=== PATIENT | male | born 1950 | race Caucasian/White ===

== ENCOUNTER 2018-02-18 14:58 | Outpatient (CLI) | payer MEDICARE ==
[2018-02-18 16:47] LABS: Hemoglobin 13.6 g/dL (14.0-18.0); Mean Corpuscular HGB CONC 34.4 g/dL (32.0-36.0); Mean Corpuscular Hemoglobin 30.2 pg (27.0-31.0); Mean Corpuscular Volume 87.6 fL (78.0-98.0); Mean Platelet Volume 7.3 fL (7.4-10.4); Platelet Count 186 thou/uL (130-400); RBC Distribution Width 11.3 % (11.5-14.5)
[2018-02-18 16:56] LABS: INR-International Normal Ratio 0.9; PTT 28.9 SEC (22.9-36.1); Prothrombin Time 12.6 SEC (12.0-14.7)
[2018-02-18 17:06] LABS: Anion Gap 12 mmol/L (10-20); BUN (Urea Nitrogen) 13 mg/dL (8.4-25.7); Calc. Creatinine Clearance 0 mL/min (70-130); Calcium 9.2 mg/dL (7.8-10.44); Carbon Dioxide 23 mmol/L (23-31); Chloride 106 mmol/L (98-107); Estimated GFR-MDRD 74; Glucose 95 mg/dL (80-115); Potassium 3.9 mmol/L (3.5-5.1); Sodium 137 mmol/L (136-145)
== END 2018-02-18 14:59 | disposition home or self-care (01) ==
LOC: LABBT 14:58
PROVIDERS: ATTEND Urology
DX: Z01.812 Encounter for preprocedural laboratory examination (principal); N32.89 Other specified disorders of bladder
CPT/HCPCS: 80048; 85027; 85610; 85730

== ENCOUNTER 2018-02-23 06:46 | Day surgery (SDC) | payer MEDICARE ==
[2018-02-18 15:19] VITALS: BMI 29.8
[2018-02-23] MEDS ORDERED: CEFAZOLIN/Water 2 GM/20 ML SYRINGE ONE (06:57)
[2018-02-23] MEDS ORDERED: Iothalamate Meglumine 60% 50 ML VIAL FS ONE (08:22)
[2018-02-23] MEDS ORDERED: Fentanyl 100 MCG/2 ML VIAL ONE (09:23)
[2018-02-23] MEDS ORDERED: B & O 30 MG SUPP ONE (11:53)
--- NOTE | 2018-02-23 13:27 | OP ---
DATE OF PROCEDURE: 02/23/2018 PREOPERATIVE DIAGNOSES: Bladder lesions and lower urinary tract symptoms. POSTOPERATIVE DIAGNOSES: Bladder lesions and lower urinary tract symptoms. PROCEDURE PERFORMED: Cysto bladder biopsy, prostatic urethral biopsy. SURGEON: Dr. Abdullahi Nuñez. ANESTHETIC: General. ESTIMATED BLOOD LOSS: 75 mL. DRAINS PLACED: 18 [place] Mercado catheter with 20 mL in the balloon. FINDINGS: There was no stricture disease. There is moderately large prostate gland. He had some frondular/papillary changes of the prostatic urethra. These were biopsied and some inflammatory changes on the trigone not involving ureteral orifices. This was biopsied. He had some red oozing area in the left wall and two areas on the anterior wall. These were biopsied and fulgurated. These were all sent to pathology. OPERATIVE TECHNIQUE: Obtained written and verbal consent from the patient after receiving IV antibiotics, he was taken to the operating suite. He was placed in the supine position on the treatment table. He was given a general anesthetic, oral intubation. He was placed in the dorsal lithotomy position and sterilely prepped and draped. PlexiPulses had been placed on his lower extremities as mentioned. Cystoscopy was performed with a 22-Eth[place] sheath. This was well lubricated, passed under direct vision through the male urethra into the urinary bladder with aid of a video camera and monitor and a 30-degree lens. Bladder was filled and emptied a number of times being examined both 30 and a 70 degree lens with the findings above. Note, it is the fact that every time the patient's bladder became full, he began to fight against this. We appeared to have good hemostasis. The instruments were removed. Mercado catheter was placed. He was taken out of dorsal lithotomy position, awakened, extubated, and taken by stretcher to the recovery room. CARLEY
== END 2018-02-23 12:20 | disposition home or self-care (01) ==
LOC: SDC 06:46
PROVIDERS: ATTEND Urology
PROC: 0TBB8ZX Excision of Bladder, Via Natural or Artificial Opening Endoscopic, Diagnostic (ICD-10-PCS; principal; 2018-02-23)
DX: N30.00 Acute cystitis without hematuria (principal); N30.20 Other chronic cystitis without hematuria; N30.80 Other cystitis without hematuria; F41.9 Anxiety disorder, unspecified; N40.1 Benign prostatic hyperplasia with lower urinary tract symptoms; Z79.899 Other long term (current) drug therapy
CPT/HCPCS: 88305; J3010; Q9961

== ENCOUNTER 2021-03-27 10:33 | Outpatient (CLI) | payer MEDICARE | END 2021-03-27 10:34 | disposition home or self-care (01) | LOC: BICULT 10:33 | PROVIDERS: ATTEND Registered Nurse | DX: Z13.6 Encounter for screening for cardiovascular disorders (principal) | CPT/HCPCS: 76775 ==

== ENCOUNTER 2021-08-26 11:00 | Inpatient (IN) | payer MEDICARE ==
[2021-08-26 12:42] LABS: Hemoglobin 13.8 g/dL (13.5-17.5); Mean Corpuscular HGB CONC 33.7 g/dL (32.0-36.0); Mean Corpuscular Hemoglobin 29.5 pg (27.0-33.0); Mean Corpuscular Volume 87.6 fl (81.2-95.1); Mean Platelet Volume 9.7 fl (7.4-10.4); Platelet Count 175 10x3/uL (150-450); RBC Distribution Width 14.3 % (11.5-14.5); Red Blood Cell (RBC) Count 4.68 10x6/uL (4.32-5.72); White Blood Cell (WBC) Count 3.6 10x3/uL (3.5-10.5)
[2021-08-26 12:52] LABS: Anion Gap 15 mmol/L (10-20); BUN (Urea Nitrogen) 16 mg/dL (8.4-25.7); Calc. Creatinine Clearance 0 mL/min (70-130); Calcium 9.9 mg/dL (7.8-10.44); Carbon Dioxide 26 mmol/L (23-31); Chloride 105 mmol/L (98-107); Glucose 86 mg/dL (80-115); Potassium 4.6 mmol/L (3.5-5.1); Sodium 141 mmol/L (136-145)
[2021-08-26 22:58] LABS: SARS-CoV-2 PCR by NAA Not Detected (NotDetected)
[2021-08-27 16:20] VITALS: BMI 25.4
[2021-08-29] MEDS ORDERED: EPINEPHrine 1 MG/ML AMP ONE (06:22)
[2021-08-29] MEDS ORDERED: Albumin 5% 500 ML ONE (06:22)
[2021-08-29] MEDS ORDERED: Bupivacaine PF 0.5% 30 ML VIAL ONE (06:22)
[2021-08-29] MEDS ORDERED: Dexamethasone 4 mg/ml Vial ONE (06:22)
[2021-08-29] MEDS ORDERED: Heparin 10,000 UNITS/1 ML VIAL 30,000 UNITS in Sodium Chloride 0.9% 1,000 ML FS SCH (07:00)
[2021-08-29] MEDS ORDERED: Midazolam HCl 2 mg/2 ml Vial ONE ×2 (07:06→07:14)
[2021-08-29] MEDS ORDERED: Fentanyl 250 MCG/5 ML VIAL ONE (07:06)
[2021-08-29] MEDS ORDERED: ceFAZolin (BATCH) 2 GM/100 ML BAG ONE (07:19)
[2021-08-29] MEDS ORDERED: Potassium Chloride 60 MEQ/30 ML VIAL ONE (07:35)
[2021-08-29] MEDS ORDERED: Rocuronium Bromide 10 MG/ML (10ML VIAL) ONE (07:35)
[2021-08-29] MEDS ORDERED: Sodium Bicarb 50 MEQ/50 ML Abboject 8.4% SYRINGE ONE (07:35)
[2021-08-29] MEDS ORDERED: Heparin 30,000 units/30 ml VIAL ONE (07:35)
[2021-08-29] MEDS ORDERED: Heparin 5,000 UNITS/ML VIAL ONE (07:35)
[2021-08-29] MEDS ORDERED: PROPOFOL 200 MG/20 ML VIAL ONE (07:35)
[2021-08-29] MEDS ORDERED: Calcium Chloride 1 GM/10 ML Abboject SYRINGE ONE (07:35)
[2021-08-29] MEDS ORDERED: Aminocaproic Acid 5 GM/20 ML VIAL ONE (07:35)
[2021-08-29] MEDS ORDERED: Glycopyrrolate 0.2 MG/ML 5 ML SYRINGE ONE (07:35)
[2021-08-29] MEDS ORDERED: Mannitol 12.5 GM/50 ML ONE (07:35)
[2021-08-29] MEDS ORDERED: Cardioplegic Soln 1,000 ML BAG ONE (07:35)
[2021-08-29] MEDS ORDERED: Magnesium Sulfate 1 GM/2 ML VIAL ONE (07:35)
[2021-08-29] MEDS ORDERED: Papaverine 60 MG/2 ML VIAL ONE (07:35)
[2021-08-29] MEDS ORDERED: Ondansetron PF 4 MG/2 ML Vial ONE (07:35)
[2021-08-29] MEDS ORDERED: Lidocaine 2% PF 100 mg/5 ml Syringe ONE (07:35)
[2021-08-29] MEDS ORDERED: Thrombin 5000 UNITS/5 ML VIAL ONE (07:35)
[2021-08-29] MEDS ORDERED: Potassium Chloride 20 MEQ/100 ML PREMIX BAG IVPB PRN (10:28)
[2021-08-29] MEDS ORDERED: Morphine 2 MG/ML VIAL SLOW IVP PRN (10:28)
[2021-08-29] MEDS ORDERED: Nitroglycerin 50 MG/250 ML BOT 250 ML IVPB PRN (10:28)
[2021-08-29] MEDS ORDERED: Mag-Al 1200 mg/1200 mg/30 ML UDCUP PO PRN (10:28)
[2021-08-29] MEDS ORDERED: Hetastarch 6% 500 ML 500 ML IVPB PRN (10:28)
[2021-08-29] MEDS ORDERED: Ondansetron PF 4 MG/2 ML Vial IVP PRN (10:28)
[2021-08-29] MEDS ORDERED: Bisacodyl 5 MG TAB PO PRN (10:28)
[2021-08-29] MEDS ORDERED: Magnesium 2 GM/50 ML(in water) 2 GM in Premix Bag 1 BAG IVPB SCH (10:28)
[2021-08-29] MEDS ORDERED: Acetaminophen 325 MG TAB PO PRN (10:28)
[2021-08-29] MEDS ORDERED: Guaifenesin DM 100-10/5 ML UDCUP PO PRN (10:28)
[2021-08-29] MEDS ORDERED: Phenylephrine 40 MG in Sodium Chloride 0.9% 250 ML 250 ML IVPB PRN (10:28)
[2021-08-29] MEDS ORDERED: Bisacodyl 10 MG SUPP PR PRN (10:28)
[2021-08-29] MEDS ORDERED: Fentanyl 100 MCG/2 ML VIAL SLOW IVP PRN (10:28)
[2021-08-29] MEDS ORDERED: DOBUTamine 500 mg/250 ml 0 ML ONE (10:28)
[2021-08-29] MEDS ORDERED: traMADol HCl 50 MG TAB PO PRN (10:28)
[2021-08-29] MEDS ORDERED: D5 1/2 NS w/20 mEq KCL 1,000 ML IV SCH (10:28)
[2021-08-29] MEDS ORDERED: Dextrose 5% in Water 1,000 ML IV PRN (10:30)
[2021-08-29] MEDS ORDERED: HUMULIN R 100 UNITS in Sodium Chloride 0.9% 100 ML IVPB SCH (10:30)
[2021-08-29] MEDS ORDERED: Dextrose 50% Abboject 50 ML SYRINGE SLOW IVP PRN (10:30)
[2021-08-29 10:38] LABS: #Lymphocytes 0.9 thou/uL (1.20-3.40); #Monocytes 0.4 thou/uL (0.11-0.59); #Neutrophils 5.9 thou/uL (1.40-6.50); %Basophils 0.3 % (0.0-1.0); %Eosinophils 0.6 % (0.0-10.0); %Lymphocytes 12.5 % (21.0-51.0); %Monocytes 5.5 % (0.0-10.0); Hemoglobin 10.3 g/dL (14.0-18.0); Mean Corpuscular HGB CONC 33.7 g/dL (32.0-36.0); Mean Corpuscular Hemoglobin 30.5 pg (27.0-31.0); Mean Corpuscular Volume 90.4 fL (78.0-98.0); Mean Platelet Volume 7.3 fL (7.4-10.4); Platelet Count 120 thou/uL (130-400); RBC Distribution Width 12.7 % (11.5-14.5); Red Blood Cell (RBC) Count 3.38 mill/uL (4.70-6.10); White Blood Cell (WBC) Count 7.3 thou/uL (4.8-10.8)
[2021-08-29 10:48] LABS: INR-International Normal Ratio 1.2; Prothrombin Time 15.7 sec (12.0-14.7)
[2021-08-29 10:49] LABS: PTT 38.4 sec (22.9-36.1)
[2021-08-29] MEDS: Fentanyl 100 MCG/2 ML VIAL SLOW IVP PRN ×3 (11:01→17:05)
[2021-08-29 11:04] LABS: Anion Gap 9 mmol/L (10-20); BUN (Urea Nitrogen) 15 mg/dL (8.4-25.7); Calc. Creatinine Clearance 94 mL/min (70-130); Calcium 7.5 mg/dL (7.8-10.44); Carbon Dioxide 23 mmol/L (23-31); Chloride 110 mmol/L (98-107); Glucose 166 mg/dL (80-115); Potassium 4.4 mmol/L (3.5-5.1); Sodium 138 mmol/L (136-145)
[2021-08-29] MEDS: Ketorolac Tromethamine 30 MG/ML VIAL IVP SCH ×3 (11:16→23:08)
[2021-08-29] MEDS: Insulin Regular 300 UNITS/3 ML VIAL SC PRN ×2 (11:46→16:24)
[2021-08-29] MEDS: traMADol HCl 50 MG TAB PO PRN (12:38)
[2021-08-29] MEDS ORDERED: Norepinephrine 8 MG in Dextrose 5% in Water 242 ML IVPB PRN (13:45)
[2021-08-29] MEDS ORDERED: Norepinephrine 8 MG/0.9% NS 250 ML IVPB SCH (13:45)
[2021-08-29] MEDS: ceFAZolin (BATCH) 2 GM in Premix Bag 1 BAG IVPB SCH ×2 (14:47→23:08)
[2021-08-29 16:18] LABS: Hemoglobin 10.5 g/dL (14.0-18.0)
[2021-08-29 16:26] LABS: Potassium 4.1 mmol/L (3.5-5.1)
[2021-08-29] MEDS: Mometasone 200 MCG/Formoterol 5 MCG 120 PUFF INHALER INH SCH (18:02)
[2021-08-29] MEDS: Tamsulosin HCl 0.4 MG CAP PO SCH (20:17)
[2021-08-29] MEDS ORDERED: Famotidine/PF 20 mg/2ml Vial SLOW IVP SCH (21:00)
[2021-08-30 04:34] LABS: #Lymphocytes 0.5 thou/uL (1.20-3.40); #Monocytes 0.6 thou/uL (0.11-0.59); #Neutrophils 6.5 thou/uL (1.40-6.50); %Eosinophils 0.2 % (0.0-10.0); %Lymphocytes 6.1 % (21.0-51.0); %Monocytes 7.8 % (0.0-10.0); %Neutrophils 85.9 % (42.0-75.0); Hemoglobin 10.8 g/dL (14.0-18.0); Mean Corpuscular HGB CONC 35.3 g/dL (32.0-36.0); Mean Corpuscular Hemoglobin 32.3 pg (27.0-31.0); Mean Corpuscular Volume 91.4 fL (78.0-98.0); Mean Platelet Volume 7.4 fL (7.4-10.4); Platelet Count 121 thou/uL (130-400); RBC Distribution Width 12.9 % (11.5-14.5); Red Blood Cell (RBC) Count 3.36 mill/uL (4.70-6.10); White Blood Cell (WBC) Count 7.6 thou/uL (4.8-10.8)
[2021-08-30 05:00] LABS: Anion Gap 8 mmol/L (10-20); BUN (Urea Nitrogen) 13 mg/dL (8.4-25.7); Calc. Creatinine Clearance 91 mL/min (70-130); Calcium 7.8 mg/dL (7.8-10.44); Carbon Dioxide 24 mmol/L (23-31); Chloride 110 mmol/L (98-107); Glucose 98 mg/dL (80-115); Potassium 4.2 mmol/L (3.5-5.1); Sodium 138 mmol/L (136-145)
[2021-08-30] MEDS: Ketorolac Tromethamine 30 MG/ML VIAL IVP SCH ×4 (05:48→23:23)
[2021-08-30] MEDS: ceFAZolin (BATCH) 2 GM in Premix Bag 1 BAG IVPB SCH (05:55)
[2021-08-30] MEDS ORDERED: Guaifenesin DM 100-10/5 ML UDCUP PO PRN (07:06)
[2021-08-30] MEDS ORDERED: Nitroglycerin 0.4 MG TAB (25 Tab Bottle) SL PRN (07:06)
[2021-08-30] MEDS ORDERED: diphenhydrAMINE 25 MG CAP PO PRN (07:06)
[2021-08-30] MEDS ORDERED: Bisacodyl 10 MG SUPP PR PRN (07:06)
[2021-08-30] MEDS ORDERED: Mineral Oil ENEMA PR PRN (07:06)
[2021-08-30] MEDS ORDERED: Milk Of Magnesia 30 ML UDCUP PO PRN (07:06)
[2021-08-30] MEDS ORDERED: Zolpidem Tartrate 5 MG TAB PO PRN (07:06)
[2021-08-30] MEDS ORDERED: Bisacodyl 5 MG TAB PO PRN (07:06)
[2021-08-30] MEDS ORDERED: Mag-Al 1200 mg/1200 mg/30 ML UDCUP PO PRN (07:06)
[2021-08-30] MEDS: Mometasone 200 MCG/Formoterol 5 MCG 120 PUFF INHALER INH SCH ×2 (07:07→18:15)
[2021-08-30] MEDS: Magnesium 2 GM/50 ML(in water) 2 GM in Premix Bag 1 BAG IVPB SCH (08:19)
[2021-08-30] MEDS: Clopidogrel Bisulfate 75 MG TAB PO SCH (08:21)
[2021-08-30] MEDS ORDERED: Aspirin 325 MG TAB PO SCH (09:00)
[2021-08-30] MEDS ORDERED: Aspirin 325 mg Enteric Coated Tablet PO SCH ×2 (09:00)
[2021-08-30] MEDS ORDERED: Insulin Glargine 30 UNITS/0.3 ML VIAL SC PRN (10:30)
[2021-08-30] MEDS: Fentanyl 100 MCG/2 ML VIAL SLOW IVP PRN (13:46)
[2021-08-30] MEDS: traMADol HCl 50 MG TAB PO PRN (15:53)
[2021-08-30] MEDS: Tamsulosin HCl 0.4 MG CAP PO SCH (17:28)
[2021-08-31] MEDS: Ketorolac Tromethamine 30 MG/ML VIAL IVP SCH ×4 (06:11→23:58)
[2021-08-31] MEDS: Mometasone 200 MCG/Formoterol 5 MCG 120 PUFF INHALER INH SCH ×2 (07:42→18:35)
[2021-08-31] MEDS: Magnesium 2 GM/50 ML(in water) 2 GM in Premix Bag 1 BAG IVPB SCH (09:09)
[2021-08-31] MEDS: Aspirin 81 mg Enteric Coated Tablet PO SCH (09:10)
[2021-08-31] MEDS: Clopidogrel Bisulfate 75 MG TAB PO SCH (09:11)
[2021-08-31] MEDS: Metoprolol Tartrate 25 MG TAB PO SCH ×2 (09:11→21:01)
[2021-08-31 14:57] VITALS: BP 132/59
[2021-08-31] MEDS: traMADol HCl 50 MG TAB PO PRN (16:18)
[2021-08-31] MEDS: Tamsulosin HCl 0.4 MG CAP PO SCH (18:29)
[2021-09-01] MEDS: Ketorolac Tromethamine 30 MG/ML VIAL IVP SCH (06:25)
[2021-09-01] MEDS: Mometasone 200 MCG/Formoterol 5 MCG 120 PUFF INHALER INH SCH (06:47)
[2021-09-01 08:07] VITALS: TEMP 97.8
[2021-09-01] MEDS: Aspirin 81 mg Enteric Coated Tablet PO SCH (08:18)
[2021-09-01] MEDS: Metoprolol Tartrate 25 MG TAB PO SCH (08:18)
[2021-09-01] MEDS: Clopidogrel Bisulfate 75 MG TAB PO SCH (08:18)
[2021-09-01 13:29] LABS: Actual Bicarbonate (HCO3a) 20.7 mEq/L (22-28); Analyzer IN Cardio OR; Base Excess (BEa) -3.7 mEq/L (-2.0 to +3.0); CO2 Tension 34.2 mmHg (35.0-45.0); Calcium, Ionized (arterial) 1.03 mmol/L (1.12-1.30); Hemoglobin (Hb) 8.3 g/dL (14.0-18.0); Potassium - ABG Lab 4.47 mmol/L (3.70-5.30)
[2021-09-01 13:29] LABS: Actual Bicarbonate (HCO3v) 24 mEq/L (22-28); Analyzer IN Cardio OR; Base Excess -0.7 mEq/L (-2.0 to +3.0); Chloride (VBG) 109 mmol/L (98-106); Hemoglobin (Hb) 8.4 g/dL (12.6-17.4); Potassium (VBG) 4.83 mmol/L (3.70-5.30); Sodium 135.1 mmol/L (133-146); pH (venous) 7.41 (7.32-7.43)
[2021-09-01 13:30] LABS: Actual Bicarbonate (HCO3a) 18.4 mEq/L (22-28); Analyzer IN Cardio OR; Base Excess (BEa) -5.5 mEq/L (-2.0 to +3.0); CO2 Tension 30.6 mmHg (35.0-45.0); Calcium, Ionized (arterial) 1.11 mmol/L (1.12-1.30); Carboxyhemoglobin (COHb) 0.3 gm% (0.0-3.0); Hemoglobin (Hb) 11.2 g/dL (14.0-18.0); O2 Tension (PaO2), arterial 386.9 mmHg (> 80.0); Potassium - ABG Lab 3.83 mmol/L (3.70-5.30)
[2021-09-01 13:30] LABS: Actual Bicarbonate (HCO3a) 17.9 mEq/L (22-28); Analyzer IN Cardio OR; Base Excess (BEa) -5.9 mEq/L (-2.0 to +3.0); CO2 Tension 28.9 mmHg (35.0-45.0); Calcium, Ionized (arterial) 1.01 mmol/L (1.12-1.30); Carboxyhemoglobin (COHb) 0.3 gm% (0.0-3.0); Hemoglobin (Hb) 8.4 g/dL (14.0-18.0); O2 Tension (PaO2), arterial 414.1 mmHg (> 80.0); Potassium - ABG Lab 5.44 mmol/L (3.70-5.30); pH, Arterial 7.41 (7.35-7.45)
[2021-09-01 13:30] LABS: Actual Bicarbonate (HCO3a) 16.1 mEq/L (22-28); Analyzer IN Cardio OR; Base Excess (BEa) -7.6 mEq/L (-2.0 to +3.0); Calcium, Ionized (arterial) 1.03 mmol/L (1.12-1.30); Carboxyhemoglobin (COHb) 0.3 gm% (0.0-3.0); Hemoglobin (Hb) 10.2 g/dL (14.0-18.0); Potassium - ABG Lab 2.98 mmol/L (3.70-5.30); pH, Arterial 7.39 (7.35-7.45)
[2021-09-01 13:31] LABS: Puncture Site Arterial Line
[2021-09-01 13:31] LABS: Puncture Site Arterial Line
[2021-09-01 13:32] LABS: Puncture Site Arterial Line
[2021-09-01 13:33] LABS: Puncture Site Arterial Line
== END 2021-09-01 09:42 | disposition home or self-care (01) | DRG 236 ==
LOC: SURG A 08-29 05:26 → CCU 08-29 10:27 → IMCU/EMU 08-31 07:44
PROVIDERS: ADMIT Thoracic Surgery (Cardiothoracic Vascular Surgery); ATTEND Thoracic Surgery (Cardiothoracic Vascular Surgery)
PROC: 021009W Bypass Coronary Artery, One Artery from Aorta with Autologous Venous Tissue, Open Approach (ICD-10-PCS; principal; 2021-08-29)
PROC: 02100Z9 Bypass Coronary Artery, One Artery from Left Internal Mammary, Open Approach (ICD-10-PCS; 2021-08-29)
PROC: 06BQ0ZZ Excision of Left Saphenous Vein, Open Approach (ICD-10-PCS; 2021-08-29)
PROC: 5A1221Z Performance of Cardiac Output, Continuous (ICD-10-PCS; 2021-08-29)
PROC: 4A033BC Measurement of Arterial Pressure, Coronary, Percutaneous Approach (ICD-10-PCS; 2021-08-29)
PROC: 3E033XZ Introduction of Vasopressor into Peripheral Vein, Percutaneous Approach (ICD-10-PCS; 2021-08-29)
PROC: 02L70CK Occlusion of Left Atrial Appendage with Extraluminal Device, Open Approach (ICD-10-PCS; 2021-08-29)
DX: I25.10 Atherosclerotic heart disease of native coronary artery without angina pectoris (principal); Z20.822 Contact with and (suspected) exposure to COVID-19; E78.00 Pure hypercholesterolemia, unspecified; F32.A Depression, unspecified; G89.29 Other chronic pain; M54.9 Dorsalgia, unspecified; E78.5 Hyperlipidemia, unspecified; Z78.1 Physical restraint status; Z87.440 Personal history of urinary (tract) infections; Z79.899 Other long term (current) drug therapy; Z79.82 Long term (current) use of aspirin; Z87.891 Personal history of nicotine dependence
CPT/HCPCS: 36416; 36430; 71045; 80048; 82805; 85025; 85027; 85610; 85730; 86850; 86900; 86901; 93005; 93010; 93798; C1751; C1776; J0171; J0690; J1100; J1642; J1644; J1815; J1885; J2001; J2150; J2250; J2405; J2440; J2704; J3010; J3370; J3475; J3480; P9045; S0017; S0020; S0028; U0003; U0005

== ENCOUNTER 2023-05-13 07:34 | Outpatient (CLI) | payer MEDICARE ==
[2023-05-13] MEDS ORDERED: Iopamidol 370 76% 100 ML VIAL ONE (14:12)
== END 2023-05-13 07:35 | disposition home or self-care (01) ==
LOC: CT 07:34
PROVIDERS: ATTEND Internal Medicine Cardiovascular Disease
DX: I77.810 Thoracic aortic ectasia (principal); R59.0 Localized enlarged lymph nodes; R91.8 Other nonspecific abnormal finding of lung field
CPT/HCPCS: 71275; 82565; Q9967